=== PATIENT | male | born 1990 | race Caucasian/White ===

== ENCOUNTER 2023-05-06 19:50 | Emergency (ER) | payer MEDICARE, SELFPAY ==
[2023-05-06 19:57] VITALS: BP 120/86; PULSE 95; O2SAT 100
[2023-05-06 20:13] VITALS: BP 115/83; PULSE 107; RESP 18; TEMP 36.6; O2SAT 95; BMI 31.6
--- NOTE | 2023-05-06 20:29 | PC.NURSE ---
Pt MARIUM, reports being diagnosed with rheumatoid arthritis at age 25, reporting increased unbearable pain/difficulty moving all extremities over the past few months. Pt expresses being very depressed r/t to his condition of not being able to walk. Pt has a left arm deformity noted, pt not able to open fingers all the way on the right hand or move his wrists. Slight foot drop noted bilaterally, pt expresses not being able to care for himself, or have anyone to help him at home.
--- NOTE | 2023-05-06 21:31 | ED.GENADULT ---
HPI - General Adult General Chief complaint: General Medical Stated complaint: Bi Lat leg pain, arthritis, unable to walk Time Seen by Provider: 05/06/23 21:28 Source: patient Mode of arrival: EMS Limitations: no limitations History of Present Illness HPI narrative: Patient history of rheumatoid arthritis diagnosed at age 25 been on different medications in the past not taking any medication now had difficulty in ambulating because of severe arthritis of bilateral knee pain . Patient states with parents who live at [address] floor and patient unable to go there patient feel depressed denies any SI because of his condition patient looking for placement as unable to be managed at home Related Data Allergies Allergy/AdvReac Type Severity Reaction Status Date / Time No Known Allergies Allergy Verified 05/06/23 21:58 [No Known Allergies*] Review of Systems Review of Systems: Yes all other systems are reviewed and are negative [facility] Social History Social History Alcohol intake: never Smoked in Last 30 Days: Yes Use of substances other than those prescribed or required for medical reasons: Yes Substance Use Type: Marijuana Substance Use Frequency: Chronic Longstanding Advance Directives: No Physical Exam ED Vital Signs: Vital Signs - 24 hr 05/06/23 20:13 Temperature 97.9 F Pulse Rate 107 H Respiratory Rate 18 Blood Pressure 115/83 Pulse Oximetry 95 Oxygen Delivery Method Room Air BMI result Body Mass Index 31.6 Appearance: Alert. Oriented X3. No acute distress. Eyes: PERRLA, No Nystagmus ENT: Pharynx normal. Oral Mucosa moist Neck: Normal inspection. Neck supple. CVS: Normal heart rate and rhythm. Pulses normal. Respiratory: No respiratory distress. Equal air entry bilateral, no wheezing/rales/rhonchi Abdomen: Soft and nontender. Bowel sounds are present, no mass palpable, no CVA tenderness Skin: Skin warm and dry. Normal skin color. Normal skin turgor. Extremities: No lower extremity edema. No calf tenderness diffuse tenderness bilateral knee slight effusion, deformity bilateral hands Neuro: Oriented X 3. No motor deficit. No sensory deficit.No cerebellar signs , cranial nerves II-XII intact Medications Administered Discontinued Medications Generic Name Dose Route Start Last Admin Trade Name Freq PRN Reason Stop Dose Admin Dexamethasone 10 mg 05/06/23 21:48 05/06/23 21:58 Dexamethasone 2 Mg Tablet PO 05/06/23 21:49 10 mg ONCE ONE Administration Medical Decision Making Medical Decision Making [facility] Narrative: Patient has severe rheumatoid arthritis disabled unable to ambulate much because of pain looking for placement and pain control will get Case Management Lab Data [facility] Lab Attestation statement: I reviewed the patient's lab results. 05/06/23 22:10 05/06/23 22:10 Labs: Lab Results 05/06/23 Range/Units 22:10 WBC 10.2 (4.8-10.8) X10*3/uL RBC 4.72 (4.60-5.80) X10*6/uL Hgb 11.8 L (14.0-18.0) g/dl Hct 38.0 L (42.0-52.0) % MCV 80.5 (80.0-98.0) fL MCH 25.0 L (27.0-33.0) pg MCHC 31.1 (31.0-36.0) g/dl RDW 15.7 (11.0-16.0) % Plt Count 415 H (160-400) X10*3/uL MPV 8.8 L (9.4-12.4) fL Immature Gran % (Auto) 0.4 (0.0-0.4) % Neut % (Auto) 77.3 H (45-73) % Lymph % (Auto) 15.3 L (20-40) % [place] % (Auto) 5.3 (2-11) % Eos % (Auto) 1.3 (0-4) % Baso % (Auto) 0.4 (0-2) % Lymph # (Auto) 1.6 (1.2-4.9) X10*3/uL [place] # (Auto) 0.5 (0.1-1.2) X10*3/uL Eos # (Auto) 0.1 (0.0-0.4) X10*3/uL Baso # (Auto) 0.0 (0.0-0.2) X10*3/uL Abs Immat Gran (auto) 0.04 H (0.00-0.03) X10*3/uL Absolute Neuts (auto) 7.9 (2.0-8.3) x10*3/uL Absolute Nucleated RBC 0.000 (0.0-0.012) X10*3/uL Nucleated RBC % (auto) 0.0 (0.0-0.2) /100WBC ESR 71 H (0-15) MM/HR Sodium 142 (135-145) mmol/L Potassium 3.8 (3.3-5.1) mmol/L Chloride 108 (96-108) mmol/L Carbon Dioxide 26 (22-29) mmol/L Anion Gap 12 (12-20) BUN 5 L (9-16) mg/dL Creatinine 0.71 (0.5-1.4) mg/dL Estim Creat Clear Calc 209.6 Estimated GFR > 60 Random Glucose 103 (60-115) mg/dL Calcium 9.2 (8.4-10.2) mg/dL Total Bilirubin 0.3 (0.0-1.0) mg/dL AST 26 (5-37) U/L ALT 17 (0-40) U/L Alkaline Phosphatase 66 (39-117) U/L C-Reactive Protein 3.17 H (< or = 0.50) mg/dL Total Protein 8.0 (6.5-8.0) g/dL Albumin 3.5 (3.5-5.0) g/dL Discharge Plan Discharge Clinical Impression: Rheumatoid arthritis Patient Disposition: Still a Patient
[2023-05-06] MEDS: dexAMETHasone 2 MG TABLET 10 MG PO (21:58)
[2023-05-06 22:18] LABS: MANUAL DIFF FLAG NO
[2023-05-06 22:20] LABS: Basophils Percent Auto 0.4 % (0-2); Eosinophils Absolute Auto 0.1 X10*3/uL (0.0-0.4); Eosinophils Percent Auto 1.3 % (0-4); Hemoglobin 11.8 g/dl (14.0-18.0); Imm Gran Abs Auto 0.04 X10*3/uL (0.00-0.03); Imm Gran Pct Auto 0.4 % (0.0-0.4); Lymphocytes Absolute Auto 1.6 X10*3/uL (1.2-4.9); Lymphocytes Percent Auto 15.3 % (20-40); Mean Corpuscular HGB Conc 31.1 g/dl (31.0-36.0); Mean Corpuscular Volume 80.5 fL (80.0-98.0); Mean Platelet Volume 8.8 fL (9.4-12.4); Monocytes Absolute Auto 0.5 X10*3/uL (0.1-1.2); Monocytes Percent Auto 5.3 % (2-11); Neutrophils Absolute Auto 7.9 x10*3/uL (2.0-8.3); Neutrophils Percent Auto 77.3 % (45-73); Platelet Count 415 X10*3/uL (160-400); Red Blood Count 4.72 X10*6/uL (4.60-5.80); Red Cell Distribution Width 15.7 % (11.0-16.0); White Blood Count 10.2 X10*3/uL (4.8-10.8)
[2023-05-06 22:32] LABS: Alanine Aminotransferase 17 U/L (0-40); Albumin Level 3.5 g/dL (3.5-5.0); Alkaline Phosphatase 66 U/L (39-117); Anion Gap 12 (12-20); Aspartate Amino Transferase 26 U/L (5-37); Bilirubin Total 0.3 mg/dL (0.0-1.0); Blood Urea Nitrogen 5 mg/dL (9-16); C Reactive Protein 3.17 mg/dL (< or = 0.50); Calcium 9.2 mg/dL (8.4-10.2); Carbon Dioxide 26 mmol/L (22-29); Chloride 108 mmol/L (96-108); Creatinine Clr Calc Pharmacy 209.6; Estimated Glomerular Filt Rate > 60; Glucose Random 103 mg/dL (60-115); Potassium 3.8 mmol/L (3.3-5.1); Sodium 142 mmol/L (135-145)
[2023-05-06 22:59] LABS: Erythrocyte Sedimentation Rate 71 MM/HR (0-15)
[2023-05-07 02:20] VITALS: BP 107/64; PULSE 85; RESP 16; TEMP 37.1; O2SAT 94
[2023-05-07 06:10] VITALS: BP 115/71; PULSE 79; RESP 17; TEMP 36.9; O2SAT 96
[2023-05-07 08:18] VITALS: BP 115/71; PULSE 79; O2SAT 96
--- NOTE | 2023-05-07 08:18 | PC.NURSE ---
pt sleeping, wakes to verbal stimulus, pt has c/o generalized body pain, requesting po- pt given water, pt currently pt/case management, covid swab to be obtained and pt will be sent over to overflow.
[2023-05-07 08:43] LABS: COVID-19 Test Negative (Negative); IDNOW Serial# BCCEAD1C
--- NOTE | 2023-05-07 11:17 | PC.NURSE ---
pt arrived to ED overflow 6. pt reports majority of pain is in bilat knees making it impossible to walk. Pt appears unclean and not well-cared for at home. CM meeting with pt now. plan of care onging
--- NOTE | 2023-05-07 13:21 | MHC.CM.ED ---
Addendum entered by Susannah Young 05/07/23 17:07: [facility], [facility], [facility], [facility] and [facility] are able to offer a bed. Patient accepts bed at [facility]. [facility] has been asked to go for ins auth. Addendum entered by Susannah Young 05/07/23 13:40: Patient previously stated SI to the ER provider. Patient verifies no SI/HI at this time. Patient was feeling down about his current health situation. Original Note: Received case management consult overnight. Patient came to the ER due leg pain and difficulty ambulating. Work up essentially negative. Physical therapy eval completed. Short term rehab is recommended. Patient is active with [facility]. Patient has 29.75 day hours and 14 night hours for [employer] per week through [facility]. PCP is Dr Ajay Abbasi. Met with patient in regards to discharge planning. Patient has been living with his brother for the past month. He was living with his mother prior to that. PCP verified. Patient has not received any Covid vaccines. Patient had a RA provider at [facility]. But she left the practice. He has been trying to find another RA without success. Patient has chronic pain issues and has been receiving Percocet from his PCP. He was obtaining benzos from the street. Patient is aware referral will need to be broadcasted to all facllities that are contracted with patient's insurance to see which facilities have a bed to offer. Last office vist note obtained from PCP's office. They do not have a HCP on file. documented that patient has a history of opiate abuse. Last documented use was August 2022. Will need [facility] PASRR Level 2. T/W already submitted for this. Continue to monitor for d/c needs.
[2023-05-07 14:54] VITALS: BP 123/71; PULSE 93; RESP 19; TEMP 36.7; O2SAT 96
[2023-05-07] MEDS: oxyCODONE HCl Immed Release 5 MG TABLET 10 MG PO ×2 (15:22→20:18)
[2023-05-07] MEDS: cloNIDine HCL 0.1 MG TABLET PO ×2 (15:22→20:19)
[2023-05-07] MEDS: Acetaminophen 325 MG TABLET 975 MG PO ×2 (15:22→21:38)
[2023-05-07 19:50] VITALS: BP 107/64; PULSE 73; RESP 16; TEMP 36.4; O2SAT 96
[2023-05-07] MEDS: QUEtiapine Fumarate 100 MG TABLET PO (20:19)
--- NOTE | 2023-05-07 20:51 | PC.NURSE ---
Verified with the Pharmacy that is ok to give Oxycodone at 2100.
[2023-05-08 05:15] VITALS: BP 109/60; PULSE 52; RESP 20; TEMP 36.1; O2SAT 97
[2023-05-08] MEDS: cloNIDine HCL 0.1 MG TABLET PO (08:21)
[2023-05-08] MEDS: oxyCODONE HCl Immed Release 5 MG TABLET 10 MG PO ×2 (08:21→19:33)
[2023-05-08] MEDS: Acetaminophen 325 MG TABLET 975 MG PO (13:20)
[2023-05-08 14:00] VITALS: BP 96/56; PULSE 78; RESP 20; TEMP 36.2; O2SAT 96
--- NOTE | 2023-05-08 14:39 | MHC.CM.ED ---
Addendum entered by Susannah Young 05/08/23 15:24: Insurance auth has been obtained. Patient can leave at 7pm. [facility] booked. [facility] with chart. Patient, Caroline ALANIZ and Jazmin NOLASCO aware. Original Note: Patient remains in ER overflow. [facility] is no longer able to offer a bed. [facility] is still able to offer a bed. Patient accepts. [facility] is in the process of obtaining insurance auth. [facility] PASRR Level 2 is obtained. Continue to monitor for d/c needs.
--- NOTE | 2023-05-08 18:01 | PC.NURSE ---
Pt A/Ox4. Scheduled pain meds given with some effect. [facility], pt aware of plan
== END 2023-05-08 19:44 ==
PROVIDERS: Physician Assistant; Emergency Provider Internal Medicine; PCP Internal Medicine
DX: M06.9 Rheumatoid arthritis, unspecified (principal); R26.2 Difficulty in walking, not elsewhere classified; M79.605 Pain in left leg; M79.604 Pain in right leg; Z20.822 Contact with and (suspected) exposure to COVID-19; Z20.828 Contact with and (suspected) exposure to other viral communicable diseases; Z79.899 Other long term (current) drug therapy
CPT/HCPCS: 36415; 80053; 85025; 85652; 86140; 87635; 97162; 99283; 99285; J8540